=== PATIENT | male | born 1990 | race Caucasian/White ===

== ENCOUNTER 2017-07-12 10:02 | Emergency (ER) | payer OTHER ==
[2017-07-12 10:13] VITALS: BMI 36.1
[2017-07-12 11:13] LABS: BASOPHIL 0.6 % (0-2.0); EOSINOPHIL 5.3 % (0-4.5); MCH 29.8 pg (25.7-33.7); MCHC 34.5 g/dl (32.0-35.9); MEAN CELL VOLUME 86.3 fl (80-96); MEAN PLT VOLUME 7.3 fl (7.5-11.1); PLATELET COUNT 233 K/MM3 (134-434); RDW 12.7 % (11.9-15.9); WHITE BLOOD COUNT 7.3 K/mm3 (4.0-10.0)
[2017-07-12 11:18] LABS: URINE APPEARANCE CLEAR; URINE BILIRUBIN NEGATIVE (NEGATIVE); URINE BLOOD NEGATIVE (NEGATIVE); URINE COLOR YELLOW; URINE GLUCOSE (UA) NEGATIVE (NEGATIVE); URINE KETONE NEGATIVE (NEGATIVE); URINE LEUK ESTERASE NEGATIVE (NEGATIVE); URINE NITRITE NEGATIVE (NEGATIVE); URINE PROTEIN NEGATIVE (NEGATIVE); URINE UROBILINOGEN NEGATIVE mg/dL (0.2-1.0)
[2017-07-12 11:20] LABS: ALBUMIN 4.5 g/dl (3.4-5.0); ANION GAP 7 (8-16); CALCIUM 9.2 mg/dL (8.5-10.1); CO2 27 mmol/L (21-32); CPK 90 IU/L (39-308); CREATININE 0.9 mg/dL (0.7-1.3); GLUCOSE,RANDOM 106 mg/dL (74-106); SGOT/AST 30 U/L (15-37); SGPT/ALT 87 U/L (12-78); TOT PROT 8.1 g/dl (6.4-8.2)
[2017-07-12 11:22] LABS: ALK PHOS 48 U/L (45-117); TROPONIN I < 0.02 ng/ml (0.00-0.05)
[2017-07-12 11:54] VITALS: BP 130/73; PULSE 52; TEMP 97.8
--- NOTE | 2017-07-12 12:08 | PDOC ---
History of Present Illness - General Chief Complaint: Chest Pain Stated Complaint: CHEST PAIN, BLOOD PRESSURE PROBLEM Time Seen by Provider: 07/12/17 10:24 History Source: Patient Exam Limitations: No Limitations - History of Present Illness Initial Comments: 07/12/17 11:11 26-year-old male with history of hypertension presents with complaints of intermittent chest pain for the past few weeks that he describes as sharp lasting seconds to his left upper chest wall and resolves without intervention. Patient has no other associated symptoms with discomfort. Patient states recently had increase in his Lopressor on Tuesday by his PCP secondary to elevated blood pressure. Patient states did start last night and took 50 mg of Lopressor this morning. Patient states decided come to the ER today when he noticed his blood pressure elevated 156/94 and the complaints above. Patient has no complaints of dizziness, headache, change in urine pattern, lower extremity edema, or shortness of breath. Patient does state recent increase in weight and poor eating habits. Presenting Symptoms: Chest Pain Timing/Duration: reports: intermittent Severity/Quality: reports: mild, sharp Location: reports: substernal Chest Pain Radiation: reports: no radiation Activities at Onset: reports: none Prior Chest Pain/Cardiac Workup: reports: No prior chest pain Nitro Today/Relief: Yes: no nitro taken today Aspirin Received prior to arrival (Core Measure): Yes: 81 mg x 2, provided by ED Associated Symptoms: Yes: Chest Pain/pressure Past History - Travel Traveled outside of the country in the last 30 days: No Close contact w/someone who was outside of country & ill: No - Past Medical History Allergies/Adverse Reactions: Allergies Allergy/AdvReac Type Severity Reaction Status Date / Time No Known Allergies Allergy Verified 07/12/17 10:09 Home Medications: Ambulatory Orders Metoprolol Succinate [Toprol Xl -] 50 mg PO DAILY 07/12/17 HTN: Yes - Psycho/Social/Smoking Cessation Hx Anxiety: No Suicidal Ideation: No Smoking History: Never smoked Have you smoked in the past 12 months: Yes Number of Cigarettes Smoked Daily: 1 Information on smoking cessation initiated: Yes Hx Alcohol Use: No Drug/Substance Use Hx: No Substance Use Type: None Patient Lives Alone: No Review of Systems - Review of Systems Able to Perform ROS?: Yes Constitutional: No: Symptoms Reported HEENTM: No: Symptoms Reported Respiratory: No: Symptoms reported Cardiac (ROS): Yes: Chest Pain ABD/GI: No: Symptoms Reported : No: Symptoms Reported Musculoskeletal: No: Symptoms Reported Integumentary: No: Symptoms Reported Hematologic/Lymphatic: No: Symptoms Reported *Physical Exam - Vital Signs Last Vital Signs Temp Pulse Resp BP Pulse Ox 97.8 F 52 L 18 130/73 98 07/12/17 11:53 07/12/17 11:53 07/12/17 11:53 07/12/17 11:53 07/12/17 11:53 - Physical Exam General Appearance: Yes: Nourished, Appropriately Dressed. No: Apparent Distress HEENT: negative: Pale Conjunctivae Neck: positive: Supple, Other (no jvd) Respiratory/Chest: positive: Lungs Clear, Normal Breath Sounds. negative: Respiratory Distress, Accessory Muscle Use Cardiovascular: positive: Regular Rhythm, Regular Rate. negative: Murmur Gastrointestinal/Abdominal: positive: Soft. negative: Tenderness Extremity: positive: Normal Capillary Refill. negative: Pedal Edema Integumentary: positive: Normal Color, Warm, Moist Neurologic: positive: Normal Mood/Affect, Motor Strength 5/5 (ambulatory) Heart Score/ECG Review - History History: Slightly suspicious - Electrocardiogram EKG: Normal - Age Age: </= 45 - Risk Factors Risk Factors Heart Score: Yes Hx Hypertension Based on the list above the patient has:: 1-2 risk factors - Troponin Troponin: </= normal limit - Score Heart Score - Total: 1 - ECG Intrepretation Rhythm: Regular Rhythm Comment:: 07/12/17 12:14 Rate 63. With occasional PVCs. No ST elevation or depression. Intervals are regular. ED Treatment Course - LABORATORY CBC & Chemistry Diagram: 07/12/17 10:50 07/12/17 10:50 - ADDITIONAL ORDERS Additional order review: Laboratory Results 07/12/17 07/12/17 11:00 10:50 Sodium 137 Potassium 3.7 Chloride 103 Carbon Dioxide 27 Anion Gap 7 L BUN 17 Creatinine 0.9 Creat Clearance w eGFR > 60 Random Glucose 106 Calcium 9.2 Total Bilirubin 1.0 AST 30 ALT 87 H Alkaline Phosphatase 48 Creatine Kinase 90 Troponin I < 0.02 Total Protein 8.1 Albumin 4.5 Urine Color Yellow Urine Appearance Clear Urine pH 7.0 Urine Protein Negative Urine Glucose (UA) Negative Urine Ketones Negative Urine Blood Negative Urine Nitrite Negative Urine Bilirubin Negative Urine Urobilinogen Negative Ur Leukocyte Esterase Negative 07/12/17 10:50 RBC 5.15 MCV 86.3 MCHC 34.5 RDW 12.7 MPV 7.3 L Neutrophils % 58.0 Lymphocytes % 27.1 Monocytes % 9.0 Eosinophils % 5.3 H Basophils % 0.6 - RADIOLOGY Radiology Studies Ordered: Category Date Time Status CHEST X-RAY PORTABLE* [RAD] Stat Radiology 07/12/17 10:38 Completed Medical Decision Making - Medical Decision Making 07/12/17 11:15 Patient with history of hypertension complain of intermittent left substernal chest pain without associated symptoms. Patient had recent increase of his Lopressor yesterday by his PCP and is to for physical on . Patient states last episode was while in the waiting area and was given 2 baby aspirin. Patient has remained asymptomatic since arrival into the main ED. Patient on exam had no acute findings. Based on patient's clinical presentation and history along with recent changes in medication diet, and weight. Patient will have cardiac workup initiated including and work and workup excluding a head CT. 07/12/17 12:16 Laboratory Tests 07/12/17 07/12/17 07/12/17 10:50 10:50 11:00 WBC 7.3 Hgb 15.3 Hct 44.5 Plt Count 233 Neutrophils % 58.0 Sodium 137 Potassium 3.7 Chloride 103 Carbon Dioxide 27 Anion Gap 7 L BUN 17 Creatinine 0.9 Random Glucose 106 Calcium 9.2 Total Bilirubin 1.0 AST 30 ALT 87 H Alkaline Phosphatase 48 Creatine Kinase 90 Troponin I < 0.02 Urine Ketones Negative Ur Leukocyte Esterase Negative *DC/Admit/Observation/Transfer Diagnosis at time of Disposition: Atypical chest pain - Discharge Dispostion Disposition: HOME Condition at time of disposition: Good - Patient Instructions Printed Discharge Instructions: DI for Chest Pain, High Blood Pressure ( Hypertension) (Alternative Therapy) Additional Instructions: Although you have had an increasing of Lopressor and atre due start a water pill I do recommend alternative therapy such as exercise diet, and decreasing your stress level. At this point you may continue with your Lopressor 50 mg daily but I do recommend waiting 2 days before initiating the water pill.
--- NOTE | 2017-07-12 12:34 | PDOC ---
*Physical Exam - Vital Signs Last Vital Signs Temp Pulse Resp BP Pulse Ox 97.8 F 52 L 18 130/73 98 07/12/17 11:53 07/12/17 11:53 07/12/17 11:53 07/12/17 11:53 07/12/17 11:53 ED Treatment Course - LABORATORY CBC & Chemistry Diagram: 07/12/17 10:50 07/12/17 10:50 - ADDITIONAL ORDERS Additional order review: Laboratory Results 07/12/17 07/12/17 11:00 10:50 Sodium 137 Potassium 3.7 Chloride 103 Carbon Dioxide 27 Anion Gap 7 L BUN 17 Creatinine 0.9 Creat Clearance w eGFR > 60 Random Glucose 106 Calcium 9.2 Total Bilirubin 1.0 AST 30 ALT 87 H Alkaline Phosphatase 48 Creatine Kinase 90 Troponin I < 0.02 Total Protein 8.1 Albumin 4.5 Urine Color Yellow Urine Appearance Clear Urine pH 7.0 Urine Protein Negative Urine Glucose (UA) Negative Urine Ketones Negative Urine Blood Negative Urine Nitrite Negative Urine Bilirubin Negative Urine Urobilinogen Negative Ur Leukocyte Esterase Negative 07/12/17 10:50 RBC 5.15 MCV 86.3 MCHC 34.5 RDW 12.7 MPV 7.3 L Neutrophils % 58.0 Lymphocytes % 27.1 Monocytes % 9.0 Eosinophils % 5.3 H Basophils % 0.6 Medical Decision Making - Medical Decision Making 07/12/17 12:31 Patient seen and evaluated with the nurse practitioner. I agree with the overall evaluation, assessment, and management with the following summary of visit: 26-year-old male presents with atypical chest pain Exam as noted Workup negative including troponin and chest x-ray Has scheduled PMD f/u, understands return criteria. *DC/Admit/Observation/Transfer Diagnosis at time of Disposition: Atypical chest pain - Referrals - Patient Instructions Printed Discharge Instructions: High Blood Pressure (Hypertension) ( Alternative Therapy), DI for Chest Pain Additional Instructions: Although you have had an increasing of Lopressor and atre due start a water pill I do recommend alternative therapy such as exercise diet, and decreasing your stress level. At this point you may continue with your Lopressor 50 mg daily but I do recommend waiting 2 days before initiating the water pill. - Post Discharge Activity
--- NOTE | 2017-07-12 17:11 | EKG ---
Test Reason : Blood Pressure : / mmHG Vent. Rate : 063 BPM Atrial Rate : 063 BPM P-R Int : 148 ms QRS Dur : 086 ms QT Int : 394 ms P-R-T Axes : 006 006 009 degrees QTc Int : 403 ms SINUS RHYTHM WITH OCCASIONAL ventricular-paced complexes BASELINE ARTIFACT IN LIMB LEADS. ABNORMAL ECG NO PREVIOUS ECGS AVAILABLE REPEAT EKG IF CLINICALLY INDICATED Confirmed by WASHINGTON PATEL MD ([id number]) on 07/12/2017 5:10:47 PM Referred By: Confirmed By:WASHINGTON PATEL MD
== END 2017-07-12 12:25 | disposition home or self-care (01) ==
LOC: JER 10:02
DX: R07.89 Other chest pain (principal); I10 Essential (primary) hypertension
CPT/HCPCS: 36415; 71010-TC; 80053; 81003; 84484; 85025; 93005; 93010; 99283-25